=== PATIENT | female | born 1995 | race Caucasian/White ===

== ENCOUNTER → 2016-11-16 11:45 | Emergency (ER) | payer SELFPAY | END | disposition home or self-care (01) | LOC: ER 11:45 | PROC: 0H9KXZZ Drainage of Right Lower Leg Skin, External Approach (ICD-10-PCS; principal; 2016-11-16) | DX: S80.821A Blister (nonthermal), right lower leg, initial encounter (principal); W10.9XXA Fall (on) (from) unspecified stairs and steps, initial encounter | CPT/HCPCS: 99282 ==